=== PATIENT | female | born 1970 | race Caucasian/White ===

== ENCOUNTER 2016-05-18 07:37 | Emergency (ER) | payer OTHER ==
[2016-05-18 08:47] LABS: BASOPHIL 0.5 % (0-2); EOSINOPHIL 1.1 % (0-5); HCT 41.5 % (37.0-47.0); HGB 13.2 g/dl (12.5-16.0); LYMPHOCYTE 18.5 % (15-48); MCH 28.7 pg (25.0-31.0); MCHC 31.8 g/dL (32.0-36.0); MCV 90.2 fL (78.0-100.0); MONOCYTE 7.3 % (0-12); MPV 9.3 fL (6.0-9.5); NEUTROPHIL 72.6 % (41-80); PLT 339 K/uL (150-400); RDW 15.4 % (11.5-14.0); WBC 9.4 K/uL (4.0-10.5)
[2016-05-18 08:49] LABS: BILIRUBIN NEGATIVE (NEGATIVE); BLOOD 2+ Ery/uL (NEGATIVE); CLARITY CLEAR (CLEAR); COLOR STRAW (YELLOW); GLUCOSE (U) NORMAL (NORMAL); KETONE (U) NEGATIVE (NEGATIVE); LEUKOCYTES NEGATIVE Leu/uL (NEGATIVE); NITRITE NEGATIVE (NEGATIVE); PROTEIN NEGATIVE (NEGATIVE); SPECIFIC GRAVITY <=1.005 (1.001-1.030); UROBILINOGEN 0.2 mg/dL (0.2-1.0)
[2016-05-18 08:53] LABS: SQUAMOUS EPITHELIAL CELLS RARE; URINARY RBC RARE
[2016-05-18 09:03] LABS: CREATININE 0.7 mg/dL (0.5-1.0); POTASSIUM 3.5 mmol/L (3.5-5.1)
== END 2016-05-18 10:09 | disposition home or self-care (01) ==
LOC: FER 07:37
PROVIDERS: Emergency Medicine
DX: R11.2 Nausea with vomiting, unspecified (principal); R19.7 Diarrhea, unspecified
CPT/HCPCS: 36415; 80048; 81001; 83690; 85025; C9113; J2405